=== PATIENT | female | born 1960 | race Caucasian/White ===

== ENCOUNTER → 2016-06-30 | Outpatient (CLI) | payer BC ==
--- NOTE | 2016-07-03 09:46 | MM ---
Reason for exam: screening (asymptomatic). Last mammogram was performed 1 year and 7 months ago. History: Patient is postmenopausal. Pre-pectoral saline implants in both breasts, 2005. Physical Findings: A clinical breast exam by your physician is recommended on an annual basis and results should be correlated with mammographic findings. MG Screening Mammo Implant/CAD Bilateral CC, MLO, and ID view(s) were taken. Prior study comparison: April 08, 2015, right breast US breast RT. December 07, 2014, right breast US breast limited RT. November 26, 2014, right breast MG work up mamm w CAD RT. November 06, 2012, CAD bilateral diagnostic mammogram. The breast tissue is heterogeneously dense. This may lower the sensitivity of mammography. Bilateral retropectoral saline implants. No significant changes when compared with prior studies. ASSESSMENT: Negative, BI-RAD 1 RECOMMENDATION: Routine screening mammogram of both breasts in 1 year.
== END | disposition home or self-care (01) ==
LOC: RADMAMWWP 08:59
PROVIDERS: ATTEND Obstetrics & Gynecology
DX: Z12.31 Encounter for screening mammogram for malignant neoplasm of breast (principal); Z98.82 Breast implant status

== ENCOUNTER → 2016-06-30 | Outpatient (CLI) | payer BC | END | disposition home or self-care (01) | LOC: LABWHC1 08:00 | PROVIDERS: ATTEND Orthopaedic Surgery | DX: Z01.818 Encounter for other preprocedural examination (principal); M16.11 Unilateral primary osteoarthritis, right hip | CPT/HCPCS: 86850; 86900; 86901 ==

== ENCOUNTER → 2016-07-07 | Outpatient (CLI) | payer BC ==
--- NOTE | 2016-07-07 10:28 | BD ---
EXAMINATION TYPE: MG DEXA axial skeleton. DATE OF EXAM: 07/07/2016 9:37 AM COMPARISON: NONE CLINICAL HISTORY: Height: 68 Weight: 176.8 FRAX RISK QUESTIONS: Alcohol (3 or more units per day): yes Family History (Parent hip fracture): no Glucocorticoids (More than 3mos): no (Ex: prednisone, prednisolone, methylprednisolone, dexamethasone, and hydrocortisone). History of Fracture in Adulthood: no Secondary Osteoporosis: 1. Type 1 Diabetes: no 2. Hyperthyroidism: no 3. Menopause before 45: no 4. Malnutrition: no 5. Chronic liver disease: no Rheumatoid Arthritis: no Current Tobacco Use: yes RISK FACTORS HISTORY OF: Hip Fracture (Right/Left): no Spine Fracture: no History of Wrist Fracture: no Surgery to Spine/Hip(right/left)/Wrist (right/left): no Family History of Osteoporosis: no Active: yes Diet low in dairy products/other sources of calcium: yes Postmenopausal woman: age 49 Lost more than 2 inches in height since high school: no Frequent falls: no Poor Health: no Adrenal Insufficiency: no MEDICATIONS: blood pressure, wellbutrin, xanax, theadore EXAM MEASUREMENTS: Bone mineral densitometry was performed using the [employer] [facility] System. Bone mineral density as measured about the Lumbar spine is: ----- L1-L4(G/cm2): 1.320 T Score Values are as follows: ----- L2: 1.1 ----- L3: 2.0 ----- L4: 1.1 ----- L1-L4: 1.2 Bone mineral density has: baseline Bone mineral density about the R hip (g/cm2): 1.060 Bone mineral density about the L hip (g/cm2): 1.112 T Score values are as follows: -----R Neck: 0.2 -----L Neck: 0.5 -----R Intertrochanter: -0.3 -----L Intertrochanter: 0.2 Bone mineral density has: baseline IMPRESSION: NORMAL. MAJOR OSTEOPOROTIC FRACTURE RISK: 4.8% HIP FRACTURE RISK: 0.1% NOTE: T-SCORE=SD OF THE YOUNG ADULT MEAN.
== END | disposition home or self-care (01) ==
LOC: RADBDWWP 09:17
PROVIDERS: ATTEND Obstetrics & Gynecology
DX: N95.1 Menopausal and female climacteric states (principal)
CPT/HCPCS: 77080

== ENCOUNTER 2016-07-10 05:43 | Inpatient (IN) | payer BC ==
--- NOTE | 2016-07-09 18:59 | HP ---
DATE OF ADMISSION: Leonarda Larson is a 56-year-old patient seen with progressive right hip pain. After having options regarding treatment discussed, she elected to proceed with direct anterior right total hip arthroplasty. Consent was obtained. Medical clearance by Dr. Dirk Garza. Cardiac clearance Dr. Zacarias. Past medical history is hypertension, asthma, cardiovascular disease, hyperlipidemia. PAST SURGICAL HISTORY: Breast augmentation, section, cholecystectomy. Daily medications: 1. Amlodipine. 2. Aspirin. 3. Crestor. 4. Ibuprofen. 5. Theophylline. ALLERGIES: VICODIN. SOCIAL HISTORY: Patient denies current tobacco use. Physical evaluation of the right hip: There is limited range of motion with severe pain, diffuse tenderness about the hip girdle, positive hip impingement sign. Straight-leg raise is negative. Distal neurovascular exam is intact. Radiographs of the right hip reveal severe osteoarthritis. IMPRESSION: Right hip osteoarthritis. PLAN: Direct anterior right total hip arthroplasty.
[~2016-07-10 05:43] MED LIST: ACETAMINOPHEN TAB 500 MG TAB PO ONE; LIDOCAINE 1% 20 ML VIAL (10MG/ML) FOR IV START INTRADERMA PRN; MELOXICAM 7.5 MG TAB PO ONE; TRANEXAMIC ACID 1,000 MG in SODIUM CHLORIDE 0.9% 100 ML IVPB ONE; ceFAZolin 2 GM in SODIUM CHLORIDE 0.9% 100 ML IVPB ONE; fentaNYL (PF) 50 MCG/ML 2 ML AMP IV PRN
[2016-07-10] MEDS: LACTATED RINGERS 1,000 ML IV SCH ×3 (06:37→23:32)
[2016-07-10] MEDS ORDERED: DEXAMETHASONE SOD PHOSPHATE 10 MG/ML 1 ML VIAL IV ONE (07:08)
[2016-07-10] MEDS: ONDANSETRON 4 MG/2 ML VIAL IVP ONE ×2 (07:08→10:41)
[2016-07-10] MEDS ORDERED: ROPIVACAINE 246.25 MG, EPINEPHrine 0.5 MG, KETOROLAC 30 MG, cloNIDine HCL/PF 80 MCG, WA... MISCELLANE ONE ×10 (07:26→07:31)
[2016-07-10] MEDS ORDERED: MIDAZOLAM 2 MG/2 ML VIAL ONE (07:38)
[2016-07-10] MEDS ORDERED: fentaNYL (PF) 50 MCG/ML 2 ML AMP ONE (07:38)
[2016-07-10] MEDS ORDERED: PHENYLEPHRINE-0.9% NACL SYG 1 MG/10 ML SYRINGE ONE (07:38)
[2016-07-10] MEDS ORDERED: LIDOCAINE 1% INJ 10MG/ML (20 ML MDV) ONE (07:38)
[2016-07-10] MEDS ORDERED: ePHEDrine 50 MG/ML 1 ML AMP ONE (07:38)
[2016-07-10] MEDS ORDERED: TRANEXAMIC ACID 1,000 MG/10 ML VIAL ONE (07:38)
[2016-07-10] MEDS ORDERED: PROPOFOL 10 MG/ML 20 ML VIAL IV ONE (07:38)
[2016-07-10] MEDS ORDERED: SODIUM CHLORIDE 0.9% 100 ML BAG ONE (07:38)
[2016-07-10] MEDS ORDERED: ceFAZolin 3,000 MG in SODIUM CHLORIDE 0.9% IRRIGATIO 3,000 ML IRRIGATION ONE (07:48)
[2016-07-10] MEDS ORDERED: LACTATED RINGERS 1,000 ML IV ONE (08:45)
--- NOTE | 2016-07-10 09:38 | FL ---
Fluoroscopy HISTORY: Hip replacement 28 seconds fluoroscopy time supplied to the referring clinician. 1 intraoperative C-arm images docum ent the procedure. See dictated report from orthopedic surgery.
--- NOTE | 2016-07-10 09:43 | XR ---
Limited right hip HISTORY: Status post right hip arthroplasty Intraoperative C-arm image documents the procedure.
[2016-07-10] MEDS ORDERED: HYDROcodone/APAP 7.5-325MG 1 EACH TAB PO PRN (09:45)
[2016-07-10] MEDS ORDERED: NALOXONE 0.4 MG/ML 1 ML VIAL IV PRN (09:45)
[2016-07-10] MEDS ORDERED: ONDANSETRON 4 MG/2 ML VIAL IVP PRN (09:45)
[2016-07-10] MEDS ORDERED: HYDROmorphone 1 MG/ML 1 ML SYRINGE IVP PRN ×2 (09:45)
--- NOTE | 2016-07-10 09:45 | P.OP ---
Date of Procedure: 07/10/16 Preoperative Diagnosis: Right hip osteoarthritis Postoperative Diagnosis: Right hip osteoarthritis Procedure(s) Performed: Direct anterior right total hip arthroplasty Implants: 1. Depuy Corail cementless KLA size 12 high offset with collar femoral component 2. Depuy pinnacle 52 mm acetabular shell 3. Depuy polyethylene acetabular liner +4 36 mm ID 52 mm OD 4. Biolox delta ceramic femoral head +1.5 36 mm Anesthesia: local, spinal Surgeon: Edgardo Pedro Painting Technician #1: Kyle Louise Estimated Blood Loss (ml): 300 Pathology: other (Femoral head) Condition: stable Disposition: PACU Indications for Procedure: 56-year-old patient seen with symptomatic right hip osteoarthritis. After having treatment options discussed, she elected to proceed with right total hip arthroplasty. Operative Findings: See description of procedure Description of Procedure: The patient was taken to the operative suite. Patient underwent a spinal anesthetic by the department of anesthesia. Patient was then transferred to the [place] table. Patient was given preoperative IV antibiotics and TXA. Both lower extremities were placed in standard leg spars. The hip was then prepped and draped in the normal sterile orthopedic fashion. A standard anterior incision was made beginning 3 cm lateral and 1 cm distal to the ASIS extending 10 cm. Dissection was then carried down through the subcutaneous soft tissues down to the fascia overlying the tensor fascia emily. An incision was now made through the fascia. Careful dissection was taken down exposing the tensor fascia emily muscle. A Cobra retractor was now placed along the medial femoral neck and a second one along the lateral femoral neck. The venous circumflex vessels were now identified, cauterized and clipped. We identified the anterior hip capsule. An incision was made through the hip capsule along the lateral border. Tag sutures were then placed along the anterior capsule and lateral capsule. We then performed a capsulotomy. Retractors were now placed around the femoral neck itself. A Cobra retractor was now placed along the anterior acetabulum. Good exposure was now noted of the femoral head/neck complex. Residual labrum was debrided out. We placed the extremity into 3 turns of fine traction. We were then able to introduce a skid in between the femoral head and acetabulum. A placed a awl into the femoral head. We took 2 turns of traction off the extremity. Rotation was now released. The femoral head was then dislocated without difficulty. Additional releasing was performed of the capsule. The head was then reduced. All traction was released. A femoral neck cut was now made with a sagittal saw. It was completed with an osteotome at the lateral neck area. The femoral head was now removed without difficulty. There was advanced osteoarthritis involving both the femoral head and acetabulum. There was some osteophytes along the anterior lateral aspect of the acetabulum that were removed utilizing a osteotome and a personal lines underwriter. The extremity was now rotated to 60 of external rotation. It was locked in position. Residual labrum was now debrided out. Serial reaming was performed of the acetabulum. Once we reached the appropriate size and a trial was position and fit nicely. The appropriate size was now chosen opened and made available. The wound was irrigated with pulse lavage mechanical irrigation. It was introduced into the acetabulum without difficulty. The C- arm/fluoroscopy was now brought into the operative field. We made sure we had a true AP pelvic view. We now under direct C-arm/fluoroscopy introduced into the acetabular component with appropriate version and inclination. It was well seated and stable. The C-arm was pulled back. An appropriate liner was introduced and clicked into position. It was felt to be stable. At this point retractors were removed. The extremity was now placed into 125 external rotation with no traction. The leg was now dropped to the ground and adducted. Appropriate retractors were now positioned along the proximal femur. We also placed our femoral look into position. Additional capsular releasing was performed to gain access to the proximal femur. We now used a box osteotome. A canal finder was now utilized. Serial broaching was now performed until we reached the appropriate size with good overall rotational stability. Appropriate calcar planing was performed. A trial head/neck was placed into position. The hip was now reduced. The C-arm/fluoroscopy was brought back into the operative field. A spot film was obtained of the nonoperative hip. A spot film was obtained of the trial components. Overlays were performed, we noted good overall alignment and positioning for determining leg length. The C- arm/fluoroscopy was pulled back. Retractors were repositioned and the hip was dislocated. The leg was again taken down to the ground and adducted. Appropriate retractors were repositioned as well as the femoral hook. All trial components were removed. The femoral implant was opened along with the femoral head. The wound was irrigated with pulse lavage mechanical irrigation. The deep soft tissues were infiltrated local analgesic. The femoral implant was introduced with good purchase and fixation noted. The femoral head was introduced with good positioning and fixation noted. Retractors were now removed. The hip was now reduced. There appeared be good positioning of the hip. This was confirmed under fluoroscopy and a spot image was obtained to document this. A second gram of TXA was given. Bipolar cautery had been utilized intermittently through the procedure for hemostasis. The wound was irrigated copiously with pulse lavage mechanical irrigation. The fascia was repaired with Vicryl suture. The subcutaneous soft tissues were repaired in layers with Vicryl suture. The skin was approximated with pernio/Dermabond. Sterile dressings were applied. Patient was then awakened, transferred to a bed and taken to recovery in stable condition. Dilip MATA assisted with the procedure.
[2016-07-10 10:24] VITALS: RESP 16
[2016-07-10 11:10] VITALS: BMI 27.6
[2016-07-10] MEDS: HYDROmorphone 1 MG/ML 1 ML SYRINGE IVP PRN ×3 (11:17→21:05)
[2016-07-10] MEDS ORDERED: ALPRAZolam 0.5 MG TAB PO PRN (12:36)
[2016-07-10] MEDS: traMADol 50 MG TAB PO SCH ×3 (12:54→22:00)
[2016-07-10] MEDS: hydrOXYzine PAMOATE 25 MG CAP PO PRN (16:43)
[2016-07-10] MEDS: ceFAZolin 2 GM in SODIUM CHLORIDE 0.9% 100 ML IVPB SCH ×2 (16:48→23:32)
[2016-07-10] MEDS ORDERED: SENNOSIDES-DOCUSATE SODIUM 1 EACH TAB PO SCH (21:00)
[2016-07-10] MEDS ORDERED: THEOPHYLLINE 24 HOUR 300 MG CAP.ER.24H PO SCH (21:00)
[2016-07-10] MEDS ORDERED: ATORVASTATIN 20 MG TAB PO SCH (21:00)
[2016-07-10] MEDS: HYDROcodone/APAP 7.5-325MG 1 EACH TAB PO PRN (23:32)
[2016-07-11] MEDS: LACTATED RINGERS 1,000 ML IV SCH ×2 (00:42→05:46)
[2016-07-11] MEDS: HYDROcodone/APAP 7.5-325MG 1 EACH TAB PO PRN ×2 (04:35→10:06)
[2016-07-11] MEDS: hydrOXYzine PAMOATE 25 MG CAP PO PRN (04:35)
[2016-07-11] MEDS: traMADol 50 MG TAB PO SCH (08:00)
[2016-07-11 08:11] VITALS: BP 106/63; PULSE 60; TEMP 98.1
[2016-07-11 08:21] LABS: Basophils % (A) 0 %; CHCM 33.8; Eosinophils % (A) 0 %; HCT 31.6 % (34.0-46.0); HDW 2.56; HGB 10.6 gm/dL (11.4-16.0); Luc # (Auto) 0.34; Luc % (Auto) 3; Lymphocytes # (A) 1.8 k/uL (1.0-4.8); Lymphocytes % (A) 16 %; MCH 30.8 pg (25.0-35.0); MCHC 33.5 g/dL (31.0-37.0); MCV 91.9 fL (80.0-100.0); Mean Platelet Volume 6.6; Monocytes # (A) 0.7 k/uL (0-1.0); Monocytes % (A) 6 %; Neutrophils % (A) 74 %; RBC 3.43 m/uL (3.80-5.40); RDW 13.8 % (11.5-15.5); WBC 10.8 k/uL (3.8-10.6); WBC (Perox) 11.15
[2016-07-11 08:28] LABS: Anion Gap 9 mmol/L; Blood Urea Nitrogen 15 mg/dL (7-17); Calcium 9.1 mg/dL (8.4-10.2); Carbon Dioxide 28 mmol/L (22-30); Chloride 105 mmol/L (98-107); Glucose 95 mg/dL (74-99); Non-African American GFR(MDRD) >60 (>60 ml/min/1.73 sqM); Potassium 4.2 mmol/L (3.5-5.1); Sodium 142 mmol/L (137-145)
[2016-07-11] MEDS ORDERED: MELOXICAM 7.5 MG TAB PO SCH (09:00)
[2016-07-11] MEDS ORDERED: ENOXAPARIN 40 MG/0.4 ML SYRINGE SQ SCH (09:00)
[2016-07-11] MEDS ORDERED: FAMOTIDINE 20 MG TAB PO SCH (09:00)
[2016-07-11] MEDS ORDERED: buPROPion SR 150 MG TABLET.ER PO SCH (09:00)
[2016-07-11] MEDS ORDERED: amLODIPine 5 MG TAB PO SCH (09:00)
--- NOTE | 2016-07-11 10:21 | P.PN ---
Subjective Principal diagnosis: Status post right total hip arthroplasty Patient is seen today resting in her hospital bed. She appears very comfortable. She is done well with therapy. Patient related after discontinuation of the catheter. She denies headaches, lightheadedness, chest pain, shortness of breath, nausea or vomiting. Objective - Vital Signs Vital signs: Vital Signs Temp 98.1 F 07/11/16 07:00 Pulse 60 07/11/16 07:00 Resp 16 07/11/16 07:00 BP 106/63 07/11/16 07:00 Pulse Ox 98 07/11/16 07:00 Intake & Output 07/10/16 07/11/16 07/11/16 18:59 06:59 18:59 Intake Total 2601 2100 200 Output Total 750 900 500 Balance 1851 1200 -300 Weight 85 kg Intake: IV 2000 1100 Lactated Ringers 1,000 ml 500 1100 @ 100 mls/hr IV .Q10H [facility] Rx#:[id number] Oral 600 1000 200 Output: Urine 450 900 500 Uretheral (Tripp) 900 500 Estimated Blood Loss 300 Other: Voiding Method Indwelling Catheter Indwelling Catheter Indwelling Catheter - Exam Right lower extremity: Incisions clean, dry and intact. Minimal soft tissue swelling present in the anterior leg. Calf is soft, no tenderness with palpation. Plantar flexion, dorsiflexion, EHL, FHL are intact. Sensory exam to light touch throughout the extremities intact, cap refills less than 2 seconds. - Labs CBC & Chem 7: 07/11/16 07:51 07/11/16 07:51 Labs: Abnormal Lab Results - Last 24 Hours (Table) 07/11/16 Range/Units 07:51 WBC 10.8 H (3.8-10.6) k/uL RBC 3.43 L (3.80-5.40) m/uL Hgb 10.6 L (11.4-16.0) gm/dL Hct 31.6 L (34.0-46.0) % Neutrophils # 8.0 H (1.3-7.7) k/uL Assessment and Plan Plan: Assessment: 1. Postop day #1 status post right total hip arthroplasty Plan: 1. Pain control, we'll discharge home on oral meds 2. Wound care was discussed with patient 3 Home therapy and nursing after discharge 4. GI and DVT prophylaxis, patient will be discharged home on aspirin 325 mg twice a day 5. Medical recommendations 6. Discharge planning: Patient will be discharged home today Time with Patient: Less than 30
--- NOTE | 2016-07-11 10:24 | P.DS ---
Providers Date of admission: 07/10/16 05:43 Expected date of discharge: 07/11/16 Attending physician: Edgardo Pedro Consults: 07/10/16 09:45 Consult Physician Routine Consulting Provider: Dirk Garza Reason/Comments: Medical management Do you want consulting provider notified?: Yes Primary care physician: Dirk Garza [facility] Course: Date of admission: 07/10/2016 Date of discharge: 07/11/2016 Admission diagnosis: Status post right total hip arthroplasty Discharge diagnosis: Same Attending physician: Dr. Pedro Surgical procedures: Right total hip arthroplasty Brief history: Patient is a 56-year-old female with a history of progressive primary right hip osteoarthritis. At this point patient has failed conservative treatment measures and has opted to proceed with a elective right total hip arthroplasty. Hospital course: Details of patient's surgery can be found in operative report. Patient tolerated the procedure well and was subsequently transported to orthopedic floor. Patient's orthopeidc and medical care was provided daily. Patient had daily laboratory tests performed for evaluation of overall blood counts. Patient had daily physical therapy to include strengthening range of motion as well as education with walker ambulation. Patient was treated with Lovenox for their postoperative DVT prophylaxis during their inpatient stay. Patient was noted to have a relatively uneventful postoperative course. Patient reported satisfactory pain control with oral pain medications by postoperative day 0. Patient showed satisfactory progress with physical therapy. Patient moved steadily through the program and had no difficulty meeting the goals by postoperative day 1. Given patient's otherwise satisfactory course and having met physical therapy goals, plan is to discharge patient home on postoperative day 1. Discharge condition/disposition: Patient will be discharged home in stable condition. Discharge medications: Instructions are given on resumption of patient's normal daily medications per primary care recommendation, in addition patient will be prescribed [address] 7.5 mg/325 mg, tramadol 50 mg, Pepcid 20 mg, aspirin 325 mg. Discharge instructions: 1. Wound care and infection precautions, keep incision dry and covered while showering, no lotions, creams, moisturizers. No soaking, tubs, pools, hottubs. Do not scrub over the incision. 2. Weight-bear as tolerated with walker / cane until follow-up. 3. Ice and elevate when necessary. Do not exceed 20 minutes per hour with ice pack. 4. Utilize compression sleeve until seen at first follow up appointment. 5. Visiting nursing care. 6. Home physical therapy. 7. Pain meds and anticoagulants per prescription. 8. Pain medication has potential to cause constipation. Increase oral fluid and fiber intake. Contact primary care provider if you have not had a bowel movement within 48 hours after discharge 9. No anti-inflammatory medication until discussed at first post operative visit, this including Motrin, Aleve, Mobic, Diclofenac. 10. Follow up in office at 2 weeks postop with Dilip Louise PA-C 11. Follow up with your primary care doctor 7-10 days after discharge. 12. Contact [facility] with any questions, . Procedures: Right total hip arthroplasty Patient Condition at Discharge: Good Plan - Discharge Summary New Discharge Prescriptions: Aspirin 325 mg PO BID #60 tab Famotidine [Pepcid] 20 mg PO DAILY #30 tablet HYDROcodone/APAP 7.5-325MG [[address] 7.5] 1 - 2 each PO Q6HR PRN #60 tab PRN Reason: Pain traMADol HCl [Ultram] 50 mg PO Q6H PRN #40 tab PRN Reason: Pain Discharge Medication List ALPRAZolam [Xanax] 0.5 mg PO BID PRN 09/28/15 [History] Rosuvastatin Calcium [Crestor] 10 mg PO HS 09/28/15 [History] Aspirin [Adult Low Dose Aspirin EC] 81 mg PO DAILY 06/28/16 [History] Ibuprofen [Motrin] 800 mg PO TID PRN 06/28/16 [History] Theophylline 12 Hour [Federico-Dur] 300 mg PO BID 06/28/16 [History] amLODIPine [Norvasc] 5 mg PO DAILY 06/28/16 [History] buPROPion HCL [Wellbutrin SR] 150 mg PO DAILY 06/28/16 [History] Aspirin 325 mg PO BID #60 tab 07/11/16 [Rx] Famotidine [Pepcid] 20 mg PO DAILY #30 tablet 07/11/16 [Rx] HYDROcodone/APAP 7.5-325MG [[address] 7.5] 1 - 2 each PO Q6HR PRN #60 tab 07/11/16 [ Rx] traMADol HCl [Ultram] 50 mg PO Q6H PRN #40 tab 07/11/16 [Rx] Follow up Appointment(s)/Referral(s): Kyle Louise PAC [PHYSICIAN SUPERVISING EDITOR TRAILER] - 2 Weeks Activity/Diet/Wound Care/Special Instructions: Orthopedic Discharge Instructions: 1. Wound care and infection precautions, keep incision dry and covered while showering, no lotions, creams, moisturizers. No soaking, pools, hot tubs. Do not scrub over incision. 2. Weight-bear as tolerated with walker / cane until follow-up. 3. Ice and elevate when necessary. Do not exceed 20 minutes per hour with ice pack. 4. Utilize compression sleeve until seen at first follow up appointment. 5. Visiting nursing care. 6. Home physical therapy. 7. Pain meds and anticoagulants per prescription. 8. Pain medication has potential to cause constipation. Increase oral fluid and fiber intake. Contact primary care provider if you have not had a bowel movement within 48 hours after discharge. 9. No anti-inflammatory medication until discussed at first post operative visit, this including Motrin, Aleve, Mobic, Diclofenac. 10. Follow up in office at 2 weeks postop with Dilip Louise PA-C 11. Follow up with your primary care doctor 7-10 days after discharge. 12. Contact [facility] with any questions, . Discharge Disposition: HOME WITH HOME HEALTH SERVICES
--- NOTE | 2016-07-11 11:18 | P.CONS ---
History of Present Illness - Reason for Consult Consult date: 07/10/16 Medical management Requesting physician: Edgardo Pedro - Chief Complaint Right hip pain - History of Present Illness Patient is a 56-year-old white female with past medical history detailed below significant for progressive right hip pain that did not respond to medical management as an outpatient. Patient presented to the hospital for elective direct anterior right total hip arthroplasty by Dr. Pedro. Patient tolerated procedure well. Patient is evaluated on surgical unit, where she is postop day #1. Patient is sitting up in a chair. Denies chills, nausea, vomiting, shortness of breath, chest pain, abdominal pain, constipation or diarrhea. Patient denies urinary urgency, dysuria, hematuria. Incisional pain control. Patient is urinating without difficulty. Patient reports good appetite. Patient has been up ambulating with the help of physical therapy. Patient is afebrile. Hemodynamically stable. WBC 10.8. Hemoglobin 10.6. Past Medical History Past Medical History: Asthma, Hypertension, Osteoarthritis (OA) Additional Past Medical History / Comment(s): rhematic fever, aortic aneurysm LESS THAN 4 CM, UTI/STONES-HAD STENTS PLACED THEN REMOVED. Last Myocardial Infarction Date:: 3-4 yrs ago History of Any Multi-Drug Resistant Organisms: MRSA Year Discovered:: 01/21/2014 MDRO Source:: Left Fourth Finger Past Surgical History: Breast Surgery, Section, Tonsillectomy Additional Past Surgical History / Comment(s): uretal stents, cervical freezE, BREAST IMPLANTS, heart catheterization Past Anesthesia/Blood Transfusion Reactions: No Reported Reaction Past Psychological History: No Psychological Hx Reported Smoking Status: Current every day smoker Past Alcohol Use History: Occasional Additional Past Alcohol Use History / Comment(s): STARTED SMOKING AT [facility] 19 SMOKES 2 cigarretes per day,SMOKING CESSATION BOOKLET GIVEN TO PT. Past Drug Use History: None Reported - Past Family History Father Additional Family Medical History / Comment(s): AT AGE 67 HEART PROBLEMS Mother Family Medical History: No Reported History Additional Family Medical History / Comment(s): AT AGE 68-HEART PROBLEMS Medications and Allergies Home Medications Medication Instructions Recorded Confirmed Type ALPRAZolam [Xanax] 0.5 mg PO BID PRN 09/28/15 07/10/16 History Rosuvastatin Calcium [Crestor] 10 mg PO HS 09/28/15 07/10/16 History Theophylline 12 Hour [Federico-Dur] 300 mg PO BID 06/28/16 07/10/16 History amLODIPine [Norvasc] 5 mg PO DAILY 06/28/16 07/10/16 History buPROPion HCL [Wellbutrin SR] 150 mg PO DAILY 06/28/16 07/10/16 History Allergies Allergy/AdvReac Type Severity Reaction Status Date / Time hydrocodone bitartrate Allergy Rash/Hives Verified 07/10/16 11:24 [From Vicodin] nickel Allergy Rash/Hives Verified 07/10/16 11:24 Physical Exam Vitals: Vital Signs Temp Pulse Pulse Pulse Resp BP Pulse Ox 07/11/16 07:00 98.1 F 60 16 106/63 98 07/11/16 02:43 96.7 F L 71 16 105/64 97 07/10/16 20:00 97.9 F 82 16 105/62 98 07/10/16 16:05 98.9 F 162/71 98 07/10/16 12:45 98 119/77 99 07/10/16 12:30 109 H 119/77 95 07/10/16 12:15 104 H 135/83 95 07/10/16 12:00 84 111/66 99 07/10/16 11:45 107 H 146/91 99 07/10/16 11:30 108 H 109/74 99 Intake and Output 07/10/16 07/11/16 07/11/16 22:59 06:59 14:59 Intake Total 800 1300 200 Output Total 900 500 Balance 800 400 -300 Intake: IV 300 800 Lactated Ringers 1,000 ml 300 800 @ 100 mls/hr IV .Q10H [facility] Rx#:[id number] Oral 500 500 200 Output: Urine 900 500 Uretheral (Tripp) 900 500 Other: Voiding Method Indwelling Catheter Indwelling Catheter GENERAL: Pt awake and alert, well-appearing, well-nourished, and in no acute distress. HEAD: Atraumatic, normocephalic. EYES: Pupils equal, round, and reactive to light, extraocular movements intact, sclera anicteric, conjunctiva are normal. ENT: Oropharynx clear without exudates. Moist mucous membranes. Tongue smooth, pink, no lesions, protrudes in midline. NECK:Normal range of motion, supple without lymphadenopathy or JVD. LUNGS: Breath sounds clear to auscultation bilaterally. No wheezes, rales, or rhonchi. HEART: Heart S1, S2, no S3 or S4. Regular rate and rhythm. No murmurs, rubs or gallops. ABDOMEN: Soft, nontender, nondistended, normoactive bowel sounds. No guarding, no rebound. No masses or organomegaly appreciated. EXTREMITIES: 2+ peripheral pulses. No edema. No calf tenderness. Right hip incision dry and intact. NEUROLOGICAL: Pt oriented x 3. No focal deficits noted. Strength and sensation grossly intact. PSYCH: Normal mood, normal affect. SKIN: Warm, dry. Normal turgor. No rashes or lesions. Results CBC & Chem 7: 07/11/16 07:51 07/11/16 07:51 Labs: Abnormal Lab Results - Last 24 Hours (Table) 07/11/16 Range/Units 07:51 WBC 10.8 H (3.8-10.6) k/uL RBC 3.43 L (3.80-5.40) m/uL Hgb 10.6 L (11.4-16.0) gm/dL Hct 31.6 L (34.0-46.0) % Neutrophils # 8.0 H (1.3-7.7) k/uL Assessment and Plan Plan: Impression: 1. Progressive primary right hip osteoarthritis status post elective right total hip arthroplasty on 07/10/2016. 2. Leukocytosis, suspect reactive. 3. Anemia, suspect in part dilutional and blood loss during surgery. 4. History of asthma. 5. History of hypertension. 6. Nicotine dependence. 7. History of rheumatic fever. 8. Aortic aneurysm less than 4 cm. 9. Coronary artery disease with history of myocardial infarction. Plan: Continue surgical management by orthopedic service. Home medications have been reviewed and resumed. Continue supportive treatment and pain management. Smoking cessation encouraged. Continue GI and DVT prophylaxis. From a medical standpoint, patient is stable for discharge when cleared by orthopedic service. Patient will follow-up with Dr. Garza in 1 week after discharge. The above impression and plan have been discussed and directed by Dr. Garza. Carrillo LEE acting as scribe for Dr. Garza.
[2016-07-11] MEDS ORDERED: MULTIVITAMINS, THERA 1 EACH TAB PO SCH (12:00)
== END 2016-07-11 11:55 | disposition home health service (06) | DRG 470 ==
LOC: 2ORMAIN 05:43 → 3SUR 09:33
PROVIDERS: ADMIT Orthopaedic Surgery; ATTEND Orthopaedic Surgery
PROC: 0SR904A Replacement of Right Hip Joint with Ceramic on Polyethylene Synthetic Substitute, Uncemented, Open Approach (ICD-10-PCS; principal; 2016-07-10 07:30)
DX: M16.11 Unilateral primary osteoarthritis, right hip (principal); I10 Essential (primary) hypertension; E78.5 Hyperlipidemia, unspecified; D72.829 Elevated white blood cell count, unspecified; I71.9 Aortic aneurysm of unspecified site, without rupture; I25.10 Atherosclerotic heart disease of native coronary artery without angina pectoris; I25.2 Old myocardial infarction; D64.9 Anemia, unspecified; M25.751 Osteophyte, right hip; J45.909 Unspecified asthma, uncomplicated; F17.210 Nicotine dependence, cigarettes, uncomplicated; Z79.899 Other long term (current) drug therapy; Z86.19 Personal history of other infectious and parasitic diseases; Z87.442 Personal history of urinary calculi; Z87.440 Personal history of urinary (tract) infections; Z86.14 Personal history of Methicillin resistant Staphylococcus aureus infection; Z88.5 Allergy status to narcotic agent; Z91.048 Other nonmedicinal substance allergy status; Z79.82 Long term (current) use of aspirin; Z79.1 Long term (current) use of non-steroidal anti-inflammatories (NSAID); Z90.49 Acquired absence of other specified parts of digestive tract; Z82.49 Family history of ischemic heart disease and other diseases of the circulatory system; Z71.6 Tobacco abuse counseling; Z87.410 Personal history of cervical dysplasia; Z98.82 Breast implant status
CPT/HCPCS: 73501; 80048; 85025; 86850; 86900; 86901; 88300

== ENCOUNTER → 2016-09-06 | Outpatient (CLI) | payer BC ==
--- NOTE | 2016-09-07 08:16 | XR ---
Abdomen HISTORY: Kidney stones Frontal view of the abdomen on 2 images correlated to previous exam 12/13/2015 Patient is status post right hip arthroplasty. Surgical clip present within the pelvis is again noted , there are surgical clips in the right upper quadrant. Calcifications are not well seen within the k idney but are present bilaterally, scattered calcifications measuring approximately 4 to 5 mm are debbie pected. There are vascular calcifications also present within the abdomen. No bowel obstruction or pn eumoperitoneum. IMPRESSION: Suspect nephrolithiasis.
== END | disposition home or self-care (01) ==
LOC: RADXRMAIN 16:20
PROVIDERS: ATTEND Urology
DX: N20.0 Calculus of kidney (principal)
CPT/HCPCS: 74000

== ENCOUNTER → 2017-10-19 | Outpatient (CLI) | payer BC ==
--- NOTE | 2017-10-19 14:08 | CT ---
EXAMINATION TYPE: CT angio abdomen DATE OF EXAM: 10/19/2017 10:00 AM COMPARISON: None HISTORY: AAA CT DLP: 414.3 mGycm Automated exposure control for dose reduction was used. TECHNIQUE: Performed with IV Contrast, patient injected with 100 mL of Isovue 370. Axial images were 5 mm thick sections. Three-D reconstructed images performed separately on the [email or web address] a computer by the technologist are presented. FINDINGS: Limited CT sections are obtained the lung bases which are clear. CT ABDOMEN: Liver and spleen and normal density without discrete masses or cysts at this phase of con trast. Kidneys appear unremarkable. Adrenal glands are normal. Pancreas is unremarkable. Gallbladder is surgically absent. Loops of bowel without oral contrast are limited. Inferior vena cava within the [id number] is normal. There is limited visualization of the upper pelvis which is unremarkable. Attention is paid to the aorta. Vascular calcification is present. Aorta at the level level of the superior mesenteric artery is 2.3 cm. The renal arteries takeoff appe ars normal. Just inferior to the renal arteries the aorta begins to increase in AP diameter of 1 cm below the anurag al arteries the aorta AP dimension is 3.1 cm. The AP diameter is 0.5 cm below the renal arteries is 2 .8 cm within estimated transverse dimension 1.9 cm. Maximum aortic AP diameter from outer lumen outer lumen is 4.6 cm. Series 4 image 39. This terminates at the bifurcation. Proximal common iliac arteries are normal. Internal and external iliac arteries appear unremarkable. Vascular calcifications within these vascular structures. IMPRESSION: INFRARENAL ABDOMINAL AORTIC ANEURYSM TERMINATING AT THE BIFURCATION WITH A MAXIMUM AP DIAMETER 4.6 CM . BEGINNING OF THE ANEURYSMAL DILATATION IS CLOSE TO THE LEVEL OF THE RENAL ARTERIES.
== END ==
LOC: RADCTMAIN 07:37
PROVIDERS: ATTEND Thoracic Surgery (Cardiothoracic Vascular Surgery)
DX: I72.2 Aneurysm of renal artery (principal)
CPT/HCPCS: 74175; Q9967

== ENCOUNTER → 2018-04-18 | Outpatient (CLI) | payer BC ==
--- NOTE | 2018-04-18 09:47 | CT ---
EXAMINATION TYPE: CT angio abd aorta w/Runoff DATE OF EXAM: 04/18/2018 HISTORY: Follow up to AAA CT DLP: 2033mGycm Automated Exposure Control for Dose Reduction was Utilized. CONTRAST: CT scan of the abdomen and pelvis is performed with IV Contrast, patient injected with 125 mL of Isov ue 370. 3-D reformats of the vasculature of the abdomen and lower extremities was performed at a [employer] workstation and submitted for interpretation. COMPARISON: 10/19/2017. FINDINGS: VASCULATURE: Again originating directly inferior to the renal artery ostia on series 6 image 30 there begins a fusiform abdominal aortic aneurysm measuring 12.2 cm in length and measuring up to 5.0 x 5. 0 cm and anterior posterior and transverse dimension when measured at a similar location of the exam of 10/19/2017 currently on series 6 image 40 and previously on series 4 image 39. As previously measur ed up to 4.6 cm on the exam of 10/19/2017. There is an associated moderate to severe amount of calcific and noncalcific atheromatous plaquing. T his infrarenal abdominal aortic aneurysm does not extend into the common iliac arteries although ther e is moderate atherosclerosis of the common iliac arteries. The internal and external iliac arteries appear patent without hemodynamically significant stenosis as do the femoral arteries and popliteal a rteries with only minimal atherosclerosis. Three-vessel branching of the lower extremities demonstrat es vascular patency although there is a diminutive caliber of the anterior tibial artery on the right . Three-vessel runoff is seen at both ankle joints. LUNG BASES: No significant abnormality is appreciated. LIVER/GB: Hepatic parenchyma is diffusely hypoattenuated in comparison to that of the spleen, most co mmonly seen in hepatic steatosis. This finding limits evaluation for hepatic masses. No gross evidenc e of hepatic mass is seen. No intrahepatic biliary ductal dilatation. Gallbladder is surgically absen t. PANCREAS: No significant abnormality is seen. SPLEEN: No significant abnormality is seen. ADRENALS: No significant abnormality is seen. KIDNEYS: There is a lobular contour of both kidneys with multiple hypoattenuated bilateral renal lesi ons that are too small to accurately characterize and an approximately 1.3 cm right renal cyst of the midpole. Surgical clip is noted anterior to the urinary bladder. BOWEL: No significant abnormality is seen. LYMPH NODES: No greater than 1cm abdominal or pelvic lymph nodes are appreciated. OSSEOUS STRUCTURES: [place] artifact is generated from a right hip prosthesis, partially obscuring visu alization of the pelvis. Degenerative changes are seen of the left femoral acetabular joint and of th e thoracolumbar and lumbosacral spine. IMPRESSION: 1. Interval enlargement of fusiform infrarenal abdominal aortic aneurysm measuring 5.0 x 5.0 x 12.2 c m, previously measuring up to 4.6 cm on the exam of 10/19/2017. 2. Moderate amount of calcific and noncalcific atheromatous plaquing of the infrarenal abdominal aort a with mild plaquing of its branches. No vascular occlusion nor hemodynamically significant stenosis of the lower extremities although the right anterior tibial artery is diminutive distally.
== END ==
LOC: RADCTMAIN 06:59
PROVIDERS: ATTEND Thoracic Surgery (Cardiothoracic Vascular Surgery)
DX: I71.4 Abdominal aortic aneurysm, without rupture (principal)
CPT/HCPCS: 75635; Q9967

== ENCOUNTER → 2018-04-30 | Outpatient (CLI) | payer BC | END | disposition home or self-care (01) | LOC: LABWHC1 06:59 | PROVIDERS: ATTEND Internal Medicine Cardiovascular Disease | DX: I10 Essential (primary) hypertension (principal) | CPT/HCPCS: 36415; 83704 ==

== ENCOUNTER 2019-02-26 10:57 | Emergency (ER) | payer BC ==
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
--- NOTE | 2019-02-26 11:32 | XR ---
EXAMINATION TYPE: XR chest 1V DATE OF EXAM: 02/26/2019 COMPARISON: 11/21/2013 HISTORY: Possible foreign body TECHNIQUE: Single frontal view of the chest is obtained. FINDINGS: There is no focal air space opacity, pleural effusion, or pneumothorax seen. Curvilinear v essel from the right infrahilar region could relate to scimitar syndrome. The cardiac silhouette size is within normal limits. The osseous structures are intact. Cholecystectomy clips are seen. No rad iopaque foreign body. IMPRESSION: No acute process. No radiopaque foreign body.
--- NOTE | 2019-02-26 11:33 | XR ---
EXAMINATION TYPE: XR soft tissue neck DATE OF EXAM: 02/26/2019 COMPARISON: NONE HISTORY: Possible throat foreign body. TECHNIQUE: 2 views of the soft tissues the neck were obtained FINDINGS: Partial dentures are seen. Thyroid cartilage calcifications are present. Airway is maintain ed. No radiopaque foreign body. Moderate degenerative disc disease of the cervical spine. Vertebral b kenzie heights are maintained. IMPRESSION: No radiopaque foreign body in the soft tissues of the neck.
[2019-02-26] MEDS ORDERED: LIDOCAINE VISCOUS 2% 15 ML CUP MUCOUS MEM ONE (11:48)
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
[2019-02-26 13:24] VITALS: BP 139/81; PULSE 79; RESP 18; TEMP 97.9
== END 2019-02-26 13:18 | disposition home or self-care (01) ==
LOC: EC 10:57
DX: T17.298A Other foreign object in pharynx causing other injury, initial encounter (principal); J45.909 Unspecified asthma, uncomplicated; I10 Essential (primary) hypertension; M19.90 Unspecified osteoarthritis, unspecified site; F17.200 Nicotine dependence, unspecified, uncomplicated; Z88.5 Allergy status to narcotic agent; Z91.048 Other nonmedicinal substance allergy status; Z79.02 Long term (current) use of antithrombotics/antiplatelets; Z79.82 Long term (current) use of aspirin; Z79.899 Other long term (current) drug therapy; Z86.14 Personal history of Methicillin resistant Staphylococcus aureus infection; Z86.79 Personal history of other diseases of the circulatory system; W20.8XXA Other cause of strike by thrown, projected or falling object, initial encounter; Y93.89 Activity, other specified; Z53.20 Procedure and treatment not carried out because of patient's decision for unspecified reasons
CPT/HCPCS: 64450; 70360; 70490; 71045; 71250; 99284

== ENCOUNTER → 2019-03-05 | Outpatient (CLI) | payer BC ==
--- NOTE | 2019-03-06 08:10 | XR ---
EXAMINATION TYPE: XR chest 2V DATE OF EXAM: 03/05/2019 COMPARISON: Prior chest x-ray 02/26/2019 HISTORY: Cough, foreign body TECHNIQUE: Frontal and lateral views of the chest are obtained. FINDINGS: There is no focal air space opacity, pleural effusion, or pneumothorax seen. The cardiac silhouette size is within normal limits. The osseous structures are intact. Surgical clips are pres ent in the upper abdomen. IMPRESSION: No acute cardiopulmonary process.
== END | disposition home or self-care (01) ==
LOC: RADXRMAIN 15:41
PROVIDERS: ATTEND Otolaryngology
DX: R05 Cough (principal)
CPT/HCPCS: 71046

== ENCOUNTER → 2019-04-08 | Outpatient (CLI) | payer BC ==
--- NOTE | 2019-04-09 08:19 | US ---
EXAMINATION TYPE: US kidneys/renal and bladder DATE OF EXAM: 04/08/2019 COMPARISON: 12/13/2015 CLINICAL HISTORY: N39.0 urinary tract infections. Frequent UTI. EXAM MEASUREMENTS: Right Kidney: 10.9 x 5.3 x 5.7 cm Left Kidney: 11.6 x 4.7 x 5.2 cm Right Kidney: lateral inferior cystic appearing lesion = 1.5 x 1.5 x 1.5 cm. Echogenic focus seen me dial = 0.7 cm. Lobular cortex visualized. Left Kidney: inferior cystic appearing lesion - 1.0 x 0.9 x 1.1 cm. Lobular cortex visualized. Bladder: distended, anechoic Bilateral Jets seen IMPRESSION: 1. Right renal stone without obstruction. 2. Left renal cyst
== END | disposition home or self-care (01) ==
LOC: RADUSWWP 15:27
PROVIDERS: ATTEND Urology
DX: N20.0 Calculus of kidney (principal); N28.1 Cyst of kidney, acquired; N39.0 Urinary tract infection, site not specified
CPT/HCPCS: 76770

== ENCOUNTER → 2019-05-08 | Outpatient (CLI) | payer BC ==
--- NOTE | 2019-05-09 12:01 | MM ---
Reason for exam: screening (asymptomatic). Last mammogram was performed 2 years and 10 months ago. History: Patient is postmenopausal. Pre-pectoral saline implants in both breasts, 2005. Physical Findings: A clinical breast exam by your physician is recommended on an annual basis and results should be correlated with mammographic findings. MG 3D Screen Mammo Imp/Cad Bilateral CC, MLO, and ID view(s) were taken. Prior study comparison: June 30, 2016, bilateral MG screening mammo implant/CAD. November 26, 2014, right breast MG work up mamm w CAD RT. The breast tissue is heterogeneously dense. This may lower the sensitivity of mammography. Benign appearing bilateral calcifications. No suspicious abnormality. Bilateral retropectoral saline implants. No significant changes when compared with prior studies. ASSESSMENT: Benign, BI-RAD 2 RECOMMENDATION: Routine screening mammogram of both breasts in 1 year.
== END | disposition home or self-care (01) ==
LOC: RADMAMWWP 09:42
PROVIDERS: ATTEND Family Medicine
DX: Z12.31 Encounter for screening mammogram for malignant neoplasm of breast (principal)
CPT/HCPCS: 77063; 77067

== ENCOUNTER → 2019-07-29 | Outpatient (CLI) | payer BC ==
--- NOTE | 2019-07-29 11:55 | XR ---
EXAMINATION TYPE: XR KUB DATE OF EXAM: 07/29/2019 HISTORY: Pain Comparison: None.Single KUB is submitted for interpretation. Findings: Right renal calculi: Vague density upper pole right kidney measuring 5.3 mm. Calculus not excluded. Right ureteral calculi: None Visualized. Left renal calculi: None Visualized. Left ureteral calculi: None Visualized. Pelvic calcifications: None Visualized. Bowel gas pattern is unremarkable. No free air. No mass effects. IMPRESSION: 1. Vague density upper pole right kidney measuring 5.3 mm. Calculus not excluded.
== END | disposition home or self-care (01) ==
LOC: RADXRMAIN 10:23
PROVIDERS: ATTEND Urology
DX: N28.89 Other specified disorders of kidney and ureter (principal)
CPT/HCPCS: 74018

== ENCOUNTER 2019-09-09 21:22 | Emergency (ER) | payer BC ==
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
[2019-09-10 00:12] VITALS: BP 142/95; PULSE 76; RESP 17; TEMP 98.9
== END 2019-09-10 00:06 ==
LOC: EC 21:22
DX: T25.222A Burn of second degree of left foot, initial encounter (principal); T31.0 Burns involving less than 10% of body surface; F17.200 Nicotine dependence, unspecified, uncomplicated; I10 Essential (primary) hypertension; M19.90 Unspecified osteoarthritis, unspecified site; Z79.899 Other long term (current) drug therapy; Z88.5 Allergy status to narcotic agent; Z88.8 Allergy status to other drugs, medicaments and biological substances; Z91.048 Other nonmedicinal substance allergy status; Z95.5 Presence of coronary angioplasty implant and graft; Z86.14 Personal history of Methicillin resistant Staphylococcus aureus infection; X08.8XXA Exposure to other specified smoke, fire and flames, initial encounter
CPT/HCPCS: 99284

== ENCOUNTER → 2019-10-14 | Outpatient (CLI) | payer BC ==
[2019-10-14 16:29] LABS: African American GFR (CKD) 81.7 (60.0-200.0); Anion Gap 7.8 mmol/L (4.00-12.00); BUN/Creat Ratio 25.56 Ratio (12.00-20.00); Calcium 9.4 mg/dL (8.7-10.3); Carbon Dioxide 26.2 mmol/L (21.6-31.8); Non-African American GFR(CKD) 70.5 (60.0-200.0); Potassium 4.1 mmol/L (3.5-5.5)
== END | disposition home or self-care (01) ==
LOC: LABWHC1 09:06
PROVIDERS: ATTEND Internal Medicine Interventional Cardiology
DX: I10 Essential (primary) hypertension (principal)
CPT/HCPCS: 36415; 80048

== ENCOUNTER → 2021-05-03 | Outpatient (CLI) | payer BC ==
[2021-05-03 14:50] LABS: Chol/HDL Ratio 3.58 Ratio; LDL Cholesterol,Calculated 77.2 mg/dL (0.0-131.0)
== END | disposition home or self-care (01) ==
LOC: LABWHC1 10:25
PROVIDERS: ATTEND Nurse Practitioner
DX: E78.5 Hyperlipidemia, unspecified (principal)
CPT/HCPCS: 36415; 80061

== ENCOUNTER → 2022-01-05 | Outpatient (CLI) | payer BC ==
--- NOTE | 2022-01-06 16:53 | MM ---
Reason for Exam: Screening (asymptomatic). Last mammogram was performed 2 year(s) and 8 month(s) ago. Patient History: Menarche at age 17. First Full-Term at age 24. Postmenopausal. 2004, Bilateral Implants. Risk Values: Lillian 5 year model risk: 1.2%. NCI Lifetime model risk: 6.0%. Prior Study Comparison: 11/06/2012 Bilateral Diagnostic Mammogram, [facility]. 11/05/2014 Bilateral Screening Mammogram, [facility]. 11/26/2014 Right Diagnostic Mammogram, [facility]. 06/30/2016 Bilateral Screening Mammogram, [facility]. 05/08/2019 Bilateral Screening Mammogram, [facility]. Tissue Density: The breast tissue is heterogeneously dense. This may lower the sensitivity of mammography. Analyzed By CAD. Overall Assessment: Benign, BI-RAD 2 Management: Screening Mammogram of both breasts in 1 year. Electronically signed and approved by: Tito Connell D.O. Radiologis
== END | disposition home or self-care (01) ==
LOC: RADMAMWWP 10:58
PROVIDERS: ATTEND Family Medicine
DX: Z12.31 Encounter for screening mammogram for malignant neoplasm of breast (principal); Z78.0 Asymptomatic menopausal state
CPT/HCPCS: 77063; 77067

== ENCOUNTER → 2022-09-28 | Outpatient (CLI) | payer BC ==
[2022-09-28 21:31] LABS: ALT 22 U/L (8-44); AST 24 U/L (13-35); Blood Urea Nitrogen 17.6 mg/dL (9.0-27.0); Carbon Dioxide 25.6 mmol/L (21.6-31.8); Chloride 108 mmol/L (96-109); Glucose 97 mg/dL (70-110); LDL Cholesterol,Calculated 90.6 mg/dL (0.0-131.0); Potassium 4.7 mmol/L (3.5-5.5); Sodium 144 mmol/L (135-145)
== END | disposition home or self-care (01) ==
LOC: LABWHC1 12:41
PROVIDERS: ATTEND Internal Medicine
DX: I10 Essential (primary) hypertension (principal)
CPT/HCPCS: 36415; 80048; 80061; 84450; 84460

== ENCOUNTER → 2022-12-28 | Outpatient (CLI) | payer BC ==
--- NOTE | 2022-12-28 15:13 | CT ---
EXAMINATION TYPE: CT abdomen pelvis w con DATE OF EXAM: 12/28/2022 COMPARISON: 10/19/17 HISTORY: Pain around belly button for one week, bloating CT DLP: 1160 mGycm CONTRAST: CT scan of the abdomen and pelvis is performed with Oral Contrast and with IV Contrast, patient injec sony with 100mL mL of Isovue 300. FINDINGS: LUNG BASES-: No visible nodule. No infiltrate. LIVER/GB: Gallbladder surgically absent. No space occupying hepatic lesion. Biliary tree is of normal caliber. PANCREAS: No inflammation. No distinct mass. SPLEEN: No splenic enlargement. No lesion seen. ADRENALS: No nodule. No thickening. KIDNEYS/BLADDER: No hydronephrosis. No nephrolithiasis. Renal cystic changes noted. Urinary bladder grossly unremarkable. BOWEL: Normal appendix. Normal bowel caliber. No inflammation. GENITAL ORGANS: No gross abnormality. LYMPH NODES: No greater than 1cm abdominal or pelvic lymph nodes are appreciated. AORTA: No significant abnormality. OSSEOUS STRUCTURES: No significant abnormality is seen. OTHER: There is midline and a widemouth umbilical hernia maximal transverse dimension of 8.1 cm in cr aniocaudal measurement of 8.7 cm. Hernia contains fat and the a portion of the transverse colon. Ther e is no evidence for strangulation or incarceration of the bowel loop. More cranially there are sever al anterior abdominal wall defect seen. One is noted to the right of midline measuring 4.4 x 2.0 cm a nd contains fat. There is an additional hernia seen within the epigastric region which contains fat a s well as a portion of the anterior gastric wall near the antrum and pylorus. This hernia measures 9. 5 cm in transverse dimension by 2.4 cm in AP dimension. Strangulation or incarceration is not suggest ed. IMPRESSION: 1. Multiple anterior abdominal wall hernias as discussed above none of which demonstrates strangulati on or incarceration. See above.
== END | disposition home or self-care (01) ==
LOC: RADCTMAIN 12:04
PROVIDERS: ATTEND Family Medicine
DX: K42.9 Umbilical hernia without obstruction or gangrene (principal); R14.0 Abdominal distension (gaseous); Z90.49 Acquired absence of other specified parts of digestive tract
CPT/HCPCS: 74177; Q9967

== ENCOUNTER → 2023-02-28 | Outpatient (CLI) | payer BC ==
--- NOTE | 2023-03-04 18:06 | MM ---
Reason for Exam: Screening (asymptomatic). Last mammogram was performed 1 year(s) and 2 month(s) ago. Patient History: Menarche at age 17. First Full-Term at age 24. Postmenopausal. 2004, Bilateral Implants. Risk Values: Lillian 5 year model risk: 1.2%. NCI Lifetime model risk: 5.8%. Prior Study Comparison: 06/30/2016 Bilateral Screening Mammogram, [facility]. 05/08/2019 Bilateral Screening Mammogram, [facility]. 01/05/2022 Bilateral MG 3D screen mammo imp/cad., [facility]. Tissue Density: There are scattered fibroglandular densities. Findings: Analyzed By CAD. Bilateral retropectoral implants are redemonstrated. Unchanged areas of asymmetric density on both sides. There is no suspicious group of microcalcifications or new suspicious mass in either breast. Overall Assessment: Benign, BI-RAD 2 Management: Screening Mammogram of both breasts in 1 year. . Patient should continue monthly self-breast exams. A clinical breast exam by your physician is recommended on an annual basis. This exam should not preclude additional follow-up of suspicious palpable abnormalities. Note on Lillian scores and lifetime risk: 1. A Lillian score greater than 3% is considered moderate risk. If this is the case, consider specialist referral to assess eligibility for a risk reducing agent. 2. If overall lifetime risk for the development of breast cancer is 20% or higher, the patient may qualify for future screening with alternating mammogram and breast MRI. Electronically signed and approved by: Domenica Serrano M.D. Radiologist
== END | disposition home or self-care (01) ==
LOC: RADMAMWWP 13:42
PROVIDERS: ATTEND Family Medicine
DX: Z12.31 Encounter for screening mammogram for malignant neoplasm of breast (principal); Z78.0 Asymptomatic menopausal state; Z98.82 Breast implant status
CPT/HCPCS: 77063; 77067

== ENCOUNTER → 2023-05-16 | Outpatient (CLI) | payer BC ==
--- NOTE | 2023-05-16 11:19 | CT ---
EXAMINATION TYPE: CT abdomen pelvis wo con CT DLP: 1008 mGycm, Automated exposure control for dose reduction was used. DATE OF EXAM: 05/16/2023 10:57 AM COMPARISON: CT abdomen pelvis most recent from 12/28/2022 CLINICAL INDICATION:Female, 63 years old with history of R31.9 HEMATURIA N200 CALCULUS KIDNEY; Hematu osman, abdominal pain, renal stone TECHNIQUE: Axial CT abdomen pelvis wo con;Sagittal and coronal reformats were created on a separate workstation. Contrast used: mL of , (none if empty) Oral contrast used: without Oral Contrast (none if empty) FINDINGS: LOWER CHEST: Moderate atherosclerosis of the coronary arteries. ABDOMEN LIVER: Unremarkable GALLBLADDER AND BILE DUCTS: The gallbladder surgically absent. PANCREAS: Unremarkable. SPLEEN: Unremarkable. ADRENAL GLANDS: Unremarkable. KIDNEYS AND URETERS: Calcifications in the renal sinuses are felt to be vascular in etiology. No rajat l calculi visualized. No evidence of hydronephrosis or renal calculus. The ureters are unremarkable. There are simple appearing cysts present. PELVIS BLADDER: No bladder stones. The urinary bladder is nondistended and poorly visualized due to streak a rtifact from hip arthroplasty. REPRODUCTIVE: Unremarkable. ABDOMEN & PELVIS STOMACH AND BOWEL: No evidence of bowel obstruction. PERITONEUM/RETROPERITONEUM: No evidence of pneumoperitoneum or free fluid. VASCULATURE: No evidence of aortic aneurysm. MUSCULOSKELETAL: No acute osseous abnormalities, right hip arthroplasty changes which limits evaluati on of the pelvis. LYMPH NODES: No gross evidence for lymphadenopathy. SOFT TISSUE/ABDOMINAL WALL: Multiple intra-abdominal hernias with loops of bowel closely approximatin g and slightly entering the herniations. No evidence for wall thickening or evidence for obstruction. IMPRESSION: 1. No evidence for renal calculus or obstructive uropathy. Calcification's in the renal sinuses are compatible with vascular calcifications. 2. Multiple ventral wall hernias some which contain bowel without evidence for obstruction or wall t hickening.
== END | disposition home or self-care (01) ==
LOC: RADCTMAIN 09:36
PROVIDERS: ATTEND Family Medicine
DX: R31.9 Hematuria, unspecified (principal); N20.0 Calculus of kidney; K46.9 Unspecified abdominal hernia without obstruction or gangrene
CPT/HCPCS: 74176

== ENCOUNTER 2023-05-29 08:44 | Day surgery (SDC) | payer BC ==
[2023-05-24 13:17] VITALS: BMI 26.6
[~2023-05-29 08:44] MED LIST changes: -ACETAMINOPHEN TAB 500 MG TAB PO ONE; +LIDOCAINE 1% (10MG/ML) FOR IV START INTRADERMA PRN; -LIDOCAINE 1% 20 ML VIAL (10MG/ML) FOR IV START INTRADERMA PRN; -MELOXICAM 7.5 MG TAB PO ONE; -TRANEXAMIC ACID 1,000 MG in SODIUM CHLORIDE 0.9% 100 ML IVPB ONE; -ceFAZolin 2 GM in SODIUM CHLORIDE 0.9% 100 ML IVPB ONE; -fentaNYL (PF) 50 MCG/ML 2 ML AMP IV PRN
[2023-05-29] MEDS ORDERED: ONDANSETRON 4 MG/2 ML VIAL ONE (09:33)
[2023-05-29] MEDS: LACTATED RINGERS 1,000 ML IV SCH (09:34)
[2023-05-29] MEDS: ONDANSETRON 4 MG/2 ML VIAL IVP ONE (09:35)
[2023-05-29 09:39] LABS: Glucose,Whole Blood 88 mg/dL (70-110)
[2023-05-29 09:48] VITALS: TEMP 97.8
[2023-05-29] MEDS ORDERED: PROPOFOL 10 MG/ML 20 ML VIAL IV ONE (10:01)
[2023-05-29] MEDS ORDERED: LIDOCAINE 1% INJ 10MG/ML (20 ML MDV) ONE (10:01)
--- NOTE | 2023-05-29 10:10 | P.GSHP ---
History of Present Illness H&P Date: 05/29/23 Chief Complaint: Colon cancer screening 63-year-old female here for colonoscopy. Last colonoscopy about 10 years ago. No family history of colon cancer. No rectal bleeding. Some constipation increasing recently. Past Medical History Past Medical History: Asthma, Hypertension, Osteoarthritis (OA) Additional Past Medical History / Comment(s): rhematic fever, aortic aneurysm LESS THAN 4 CM, UTI/STONES-HAD STENTS PLACED THEN REMOVED. /started abx for uti, on metformin for weight loss, Last Myocardial Infarction Date:: 3-4 yrs ago History of Any Multi-Drug Resistant Organisms: MRSA Date of last positivie culture/infection: 01/21/2014 MDRO Source:: Left Fourth Finger Past Surgical History: Breast Surgery, Section, Heart Catheterization, Tonsillectomy Additional Past Surgical History / Comment(s): uretal stents, cervical freezE, BREAST IMPLANTS, heart catheterization, colonoscopy Past Anesthesia/Blood Transfusion Reactions: No Reported Reaction Additional Past Anesthesia/Blood Transfusion Reaction / Comment(s): no blood transfusion Smoking Status: Former smoker - Past Family History Father Additional Family Medical History / Comment(s): AT AGE 67 HEART PROBLEMS Mother Family Medical History: No Reported History Additional Family Medical History / Comment(s): AT AGE 68-HEART PROBLEMS Medications and Allergies Home Medications Medication Instructions Recorded Confirmed Type ALPRAZolam [Xanax] 0.5 mg PO BID PRN 09/28/15 05/29/23 History Rosuvastatin Calcium [Crestor] 10 mg PO HS 09/28/15 05/29/23 History buPROPion HCL [Wellbutrin SR] 300 mg PO DAILY 06/28/16 05/29/23 History Aspirin 325 mg PO DAILY 02/26/19 05/29/23 History Ibuprofen 800 mg PO Q6H PRN 02/26/19 05/29/23 History Metoprolol Succinate (ER) [Toprol 50 mg PO DAILY 02/26/19 05/29/23 History Xl] Biotin [Biotin Disolve] 10,000 mcg PO DAILY 05/24/23 05/29/23 History Levofloxacin [Levaquin] 1 tab PO DAILY 05/24/23 05/29/23 History Losartan-Hctz 50-12.5 mg [Hyzaar 1 tab PO DAILY 05/24/23 05/29/23 History 50-12.5] Varenicline [Chantix] 1 mg PO DAILY 05/24/23 05/29/23 History metFORMIN HCL 500 mg PO BID 05/24/23 05/29/23 History Allergies Allergy/AdvReac Type Severity Reaction Status Date / Time hydrocodone bitartrate Allergy Rash/Hives Verified 05/29/23 09:14 [From Vicodin] morphine Allergy Nausea & Verified 05/29/23 09:14 Vomiting nickel Allergy Rash/Hives Verified 05/29/23 09:14 Surgical - Exam Vital Signs Temp Pulse Resp BP Pulse Ox 97.8 F 65 14 116/68 94 L 05/29/23 09:21 05/29/23 09:21 05/29/23 09:21 05/29/23 09:21 05/29/23 09:21 Physical exam: General: Well-developed, well-nourished HEENT: Normocephalic, sclerae nonicteric Abdomen: Nontender, nondistended Extremities: No edema Neuro: Alert and oriented Assessment and Plan (1) Colon cancer screening Narrative/Plan: Will proceed with colonoscopy at this time. Current Visit: Yes Status: Acute Code(s): Z12.11 - ENCOUNTER FOR SCREENING FOR MALIGNANT NEOPLASM OF COLON SNOMED Code(s): 541912177
--- NOTE | 2023-05-29 10:19 | P.PCN ---
Date of Procedure: 05/29/23 Procedure(s) Performed: PREOPERATIVE DIAGNOSIS: Colon cancer screening POSTOPERATIVE DIAGNOSIS: Normal exam PROCEDURE: Colonoscopy ANESTHESIA: MAC SURGEON: Alfredo Kessler M.D. SPECIMENS: None ENDOSCOPIC PROCEDURE: The patient was placed on the endoscopy table in the left decubitus position. The Olympus colonoscope was inserted into the anus and passed under direct visualization to the base of the cecum. The appendiceal orifice was visualized. From that point the scope was slowly withdrawn inspecti ng all surfaces carefully. There were no neoplastic inflammatory or polypoid lesions throughout the cecum, ascending, transverse, descending, sigmoid and rectum. There was no visible diverticulosis noted. Digital rectal examination was normal. The patient was taken to the recovery room in stable condition per anesthesia guidelines. RECOMMENDATIONS: Resume diet. Repeat colonoscopy 10 years.
[2023-05-29 10:56] VITALS: BP 115/77; PULSE 58; RESP 16
== END 2023-05-29 11:10 | disposition home or self-care (01) ==
LOC: ORWHC2ENDO 08:44
PROVIDERS: ATTEND Surgery
DX: Z12.11 Encounter for screening for malignant neoplasm of colon (principal); I10 Essential (primary) hypertension; J45.909 Unspecified asthma, uncomplicated; E78.5 Hyperlipidemia, unspecified; Z79.84 Long term (current) use of oral hypoglycemic drugs; Z86.14 Personal history of Methicillin resistant Staphylococcus aureus infection; Z79.82 Long term (current) use of aspirin; Z79.899 Other long term (current) drug therapy; Z88.5 Allergy status to narcotic agent; Z91.09 Other allergy status, other than to drugs and biological substances; Z87.891 Personal history of nicotine dependence
CPT/HCPCS: 45378; J2405; J2001; J2704

== ENCOUNTER → 2023-06-12 | Outpatient (CLI) | payer BC ==
[2023-06-12 17:33] LABS: BUN/Creat Ratio 17.92 Ratio (12.00-20.00); Blood Urea Nitrogen 23.3 mg/dL (9.0-27.0); Calcium 9.6 mg/dL (8.7-10.3); Carbon Dioxide 26.2 mmol/L (21.6-31.8); Chloride 107 mmol/L (96-109); Glucose 99 mg/dL (70-110); Potassium 4.9 mmol/L (3.5-5.5); Sodium 143 mmol/L (135-145)
== END | disposition home or self-care (01) ==
LOC: LABWHC1 09:33
PROVIDERS: ATTEND Internal Medicine Interventional Cardiology
DX: I10 Essential (primary) hypertension (principal)
CPT/HCPCS: 36415; 80048

== ENCOUNTER → 2023-11-01 | Outpatient (CLI) | payer BC ==
--- NOTE | 2023-11-21 13:46 | CT ---
Patient: Leonarda Larson A Ordering Physician: Unknown, Unknown ID: [id number] Phone, Pager: Phone : N/A Pager: N/A : 1960 Age/Gender: 63Y, F Primary Location: N/A Procedure: CT ABDOMEN PELVIS WITH CONTRAST Study Date: 11/01/2023 4:02:00 PM EXAMINATION TYPE: CT abdomen pelvis w con DATE OF EXAM: 11/16/2023 COMPARISON: 05/16/2023 INDICATION: Hematuria abdominal pain renal stone DLP: 753.5 mGycm, Automated exposure control for dose reduction was used. CONTRAST: 100 mL of Isovue 300. Study performed with Oral Contrast TECHNIQUE: Axial images were obtained from above the diaphragm to the pubic rami in the axial plane a t 5 mm thick sections. Reconstructed images are reviewed on the computer in the coronal plane. FINDINGS: Limited CT sections are obtained the lung bases. The lung bases are clear. CT ABDOMEN: There is a very broad-based shallow anterior abdominal wall hernia. Some involvement of t he colon is present. No entrapment is evident. Liver: Normal Spleen: Normal Pancreas: Normal Adrenal glands: The adrenal glands are normal. Gallbladder: Surgically absent Kidneys: No masses are evident. No hydronephrosis is present. There are multiple bilateral cortical renal cysts. Largest on the left is on the posterior lateral inferior pole measuring 2.2 cm. Largest on the right measures 1.8 cm on the lateral mid kidney. Delayed images were obtained through the ki dneys, which remain unremarkable. Aorta: Vascular calcification is within the aorta. Appears to be sent repair of the distal abdominal aorta. Common iliac arteries are patent. Internal and external iliac vessels are patent Inferior vena cava: Normal. CT PELVIS: Loops of bowel within the abdomen and pelvis are normal. There are loops of bowel which are incom pletely distended or lack oral contrast limiting their evaluation. Appendix: Normal as visualized. Urinary bladder: Decompressed and beam hardening artifact from right hip prosthesis. Genitourinary structures: Uterus appears normal. Adnexa are not well visualized Osseous structures: Right hip prosthesis is present. This causes beam hardening artifact through the lower pelvis limiting evaluation. IMPRESSION: 1. No suspicious renal or ureteral stone identified. 2. No suspicious acute changes. 3. Shallow broad anterior abdominal hernia with nonobstructed colon. 4. Unremarkable postsurgical abdominal aorta.
== END | disposition home or self-care (01) ==
LOC: RADCTMAIN 15:45
PROVIDERS: ATTEND Family Medicine
DX: K43.9 Ventral hernia without obstruction or gangrene (principal); N20.0 Calculus of kidney; R10.0 Acute abdomen
CPT/HCPCS: 74177; Q9967

== ENCOUNTER 2024-04-21 08:38 | Day surgery (SDC) | payer BC ==
[~2024-04-21 08:38] MED LIST changes: -LIDOCAINE 1% (10MG/ML) FOR IV START INTRADERMA PRN; +SCOPOLAMINE 1 MG/72 HR PATCH TRANSDERM ONE
[2024-04-21] MEDS: IV FLUID CONTINUATION 1,000 ML IV ONE ×2 (08:58→12:02)
[2024-04-21 09:28] LABS: Glucose,Whole Blood 101 mg/dL (70-110)
[2024-04-21 09:31] LABS: HGB 10.8 gm/dL (11.4-16.0); MCH 30.9 pg (25.0-35.0); MCHC 33.6 g/dL (31.0-37.0); MCV 91.9 fL (80.0-100.0); Mean Platelet Volume 6.9; Platelet Count 218 k/uL (150-450); RBC 3.49 m/uL (3.80-5.40); WBC 6.1 k/uL (3.8-10.6)
[2024-04-21] MEDS: LACTATED RINGERS 1,000 ML IV SCH (09:32)
[2024-04-21] MEDS: DEXAMETHASONE SOD PHOSPHATE 4 MG/ML 1 ML VIAL IV ONE (09:33)
[2024-04-21] MEDS: ONDANSETRON 4 MG/2 ML VIAL IVP ONE (09:33)
[2024-04-21] MEDS: MIDAZOLAM 2 MG/2 ML VIAL IV PRN (09:55)
[2024-04-21] MEDS: fentaNYL (PF) 50 MCG/ML 2 ML AMP IV PRN (09:55)
[2024-04-21] MEDS: HEPARIN SODIUM,PORCINE 5,000 UNIT/ML 1 ML VIAL SQ PRN (10:15)
--- NOTE | 2024-04-21 10:41 | P.ANPRN ---
Procedure Note - Anesthesia - Nerve Block Performed Bilateral Erector Spinae Single Time Out Performed: Yes Date of Procedure: 04/21/24 Procedure Start Time: 09:54 Procedure Stop Time: 10:03 Location of Patient: PreOp Indication: Acute Post-Operative Pain, Requested by Surgeon Sedation Type: Sedate with meaningful contact maintained Preparation: Sterile Prep Position: Sitting Needle Types: Pajunk Needle Gauge: 21 Ultrasound used to visualize needle placement: Yes Ultrasound used to observe medication spread: Yes Injectate: 0.5% Ropivacaine (see comment for volume) (Continue mL +10 mL of normal saline +4 mg of dexamethasone per side) Blood Aspirated: No Pain Paresthesia on Injection Noted: No Resistance on Injection: Normal Image Stored and Saved: Yes Events: Uneventful and Well Tolerated
[2024-04-21] MEDS ORDERED: DEXAMETHASONE SOD PHOSPHATE 4 MG/ML 1 ML VIAL ONE (11:07)
[2024-04-21] MEDS ORDERED: fentaNYL (PF) 50 MCG/ML 2 ML AMP ONE (11:07)
[2024-04-21] MEDS ORDERED: NEOSTIGMINE 1 MG/ML 10 ML VIAL ONE (11:07)
[2024-04-21] MEDS ORDERED: GLYCOPYRROLATE 0.2 MG/ML 2 ML VIAL ONE (11:07)
[2024-04-21] MEDS ORDERED: KETAMINE HCL IN 0.9 % NACL 50 MG/5 ML SYRINGE ONE (11:07)
[2024-04-21] MEDS ORDERED: SODIUM CHLORIDE 0.9% (PF) 10 ML VIAL ONE (11:07)
[2024-04-21] MEDS ORDERED: LIDOCAINE 1% INJ 10MG/ML (20 ML MDV) ONE (11:07)
[2024-04-21] MEDS ORDERED: ROCURONIUM 10 MG/ML (5 ML VIAL) IV ONE (11:07)
[2024-04-21] MEDS ORDERED: SUCCINYLCHOLINE CHLORIDE 200 MG/10 ML VIAL IV ONE (11:07)
[2024-04-21] MEDS ORDERED: PROPOFOL 10 MG/ML 20 ML VIAL IV ONE (11:07)
[2024-04-21] MEDS ORDERED: MIDAZOLAM 2 MG/2 ML VIAL ONE (11:07)
[2024-04-21] MEDS ORDERED: KETOROLAC 15 MG/ML 1 ML VIAL ONE (11:07)
[2024-04-21] MEDS ORDERED: ROPIVACAINE 5 MG/ML 30 ML VIAL ONE (11:07)
[2024-04-21] MEDS ORDERED: PHENYLEPHRINE-0.9% NACL SYG 1,000 MCG/10 ML SYRINGE ONE (11:07)
[2024-04-21 12:51] VITALS: TEMP 96.9
[2024-04-21] MEDS: HYDROmorphone 0.5 MG/0.5 ML SYRINGE IVP ONE ×2 (12:56→13:05)
[2024-04-21 13:58] VITALS: RESP 16
[2024-04-21 15:31] VITALS: BP 116/66; PULSE 49
--- NOTE | 2024-04-21 21:26 | P.OP ---
Date of Procedure: 04/21/24 Preoperative Diagnosis: Incisional hernia Postoperative Diagnosis: Incisional hernia measuring 4 x 5 cm Procedure(s) Performed: Laparoscopic converted to open incisional hernia repair with mesh placement Implants: 12 cm ventral light mesh Anesthesia: MG Surgeon: Fede Bartholomew Pathology: none sent Condition: stable Disposition: same day Indications for Procedure: 64-year-old female presented to the surgical clinic with complaint of hernia at previous incision site. She has a history of ruptured AAA requiring open repair with takeback to the OR the next day due to complication according to the patient. Over time she has developed a painful bulge at the inferior portion of her incision. CT was performed with confirmation of incisional hernias. Plan is for robotic approach with possibility of open procedure based on intra- abdominal findings. Risks, benefits and alternatives were presented to the patient. All questions answered prior to attending the operating suite. Operative Findings: Significant extensive intra-abdominal adhesions 4 x 5 cm incisional hernia Description of Procedure: Patient was brought to the operating suite and placed in supine position on the operating table. Sedation was provided by anesthesia and the patient underwent endotracheal intubation. The patient was then prepped and draped in regular sterile fashion. Incision was made in the left upper quadrant and the abdomen was entered under direct visualization using a Visiport. Pneumoperitoneum was achieved and on immediate evaluation of the abdominal cavity, significant amount of intra-abdominal adhesions were noted with inability for any clear visualization or insertion of any additional ports. At this point it was decided that it was unsafe to continue with a laparoscopic approach. Close examination of the surrounding tissue was performed to confirm no enterotomy creation due to the significant dense adhesions. No enterotomy was noted. The incisional hernia site was palpated and incision was made in vertical fashion over the incisional hernia and dissection was carried towards the fascial defect. Hernia sac was encountered and dissected with all planes of the fascia cleared from adhesive tissue. Intra-abdominal he, omental adhesions were taken down to clear space for the appropriate mesh. The incisional hernia did measure about 4 x 5 cm. 12 cm mesh was decided upon. Ventralight mesh was placed within the abdominal cavity and secured at the cardinal positions using interrupted 3-0 Vicryl suture as an underlay.. The mesh was noted to sit appropriately without any folds or kinks. The hernia defect was then closed over the hernia site while securing the mesh with each bite. This was performed with a running oh strata fix suture. At this point the defect was closed and the incision site was closed in layers with 3 oh then 4-0 Vicryl subcuticular suture. Sterile dressing was applied. The patient was awakened in the operating suite and taken to postanesthesia care unit in stable condition.
[2024-04-22] MEDS ORDERED: HYDROmorphone 0.5 MG/0.5 ML SYRINGE IVP PRN (07:00)
== END 2024-04-21 15:57 | disposition home or self-care (01) ==
LOC: OR 08:38
PROVIDERS: ATTEND Surgery
DX: K43.2 Incisional hernia without obstruction or gangrene (principal); G89.18 Other acute postprocedural pain; K66.0 Peritoneal adhesions (postprocedural) (postinfection); I10 Essential (primary) hypertension; E78.5 Hyperlipidemia, unspecified; J45.909 Unspecified asthma, uncomplicated; E11.9 Type 2 diabetes mellitus without complications; F12.90 Cannabis use, unspecified, uncomplicated; Z87.442 Personal history of urinary calculi; Z87.440 Personal history of urinary (tract) infections; Z79.84 Long term (current) use of oral hypoglycemic drugs; Z79.51 Long term (current) use of inhaled steroids; Z79.899 Other long term (current) drug therapy; Z79.82 Long term (current) use of aspirin; Z88.5 Allergy status to narcotic agent; Z88.8 Allergy status to other drugs, medicaments and biological substances; Z88.6 Allergy status to analgesic agent
CPT/HCPCS: 64999; 84132; 85027; 49593; C1781; J2250; J0330; J1644; J1100; J2710; J0690; J2405; J2003; J3010; J2795; J1885; J2704; J1171; J2371; J1596